=== PATIENT | female | born 1935 | race Caucasian/White ===

== ENCOUNTER 2016-11-06 17:33 | Emergency (ER) | END 2016-11-06 20:11 | disposition home or self-care (01) | DX: R19.7 Diarrhea, unspecified (principal); I10 Essential (primary) hypertension; Z79.82 Long term (current) use of aspirin ==

== ENCOUNTER 2017-06-26 13:58 | Emergency (ER) | END 2017-06-26 20:28 | disposition home or self-care (01) ==

== ENCOUNTER 2018-11-13 17:57 | Emergency (ER) | payer MEDICARE, OTHER ==
[~2018-11-13] VITALS: Ht 162.6 cm; Wt 100.0 kg
[~2018-11-13 17:57] MED LIST: ALBU18HF INHALATION; ALEN70TA5 PO; AMIO200T4 PO; ASPI-817 PO; ASPI81TA50 PO; ATEN50TA PO; BETH50TA PO; CELE200C PO; CHOL200056 PO; CLON-379 PO; DEXL60CA2 PO; DICL100G37 TOP; FLUT16SP17 NASAL; FURO-110 PO; FURO20TA3 PO; FURO40TA4 PO; HYDR25TA6 PO; HYDR28.340 TOP; ICOS1CAP PO; LABE100T7 PO; LEVO112T57 PO; LORA0.5T PO; LORA1TAB PO; MECL-77 PO; MELO15TA30 PO; MEMA5TAB PO; OLME40TA13 PO; OLOP2.5D BOTH EYES; OMEG1CAP2 PO; POTA8TAB2 PO; RSV10T PO; SOLI5TAB2 PO; TEMA15CA6 PO; TYL500 PO; ZOLP10TA5 PO
[2018-11-13 18:00] VITALS: Ht 162.6 cm; Wt 100.0 kg
--- NOTE | 2018-11-13 18:33 | ERD ---
ER Documentation Chief Complaint Chief Complaint Daughter reports pt unable to urinate for 2 weeks HPI The patient is a 82-year-old female, presenting to the ER because she has not been able to void well for the last 2 weeks. This is a chronic problem and she has been follow-up with urologist frequently. She saw her urologist about a month ago, who requested her to see a cash processor for her uterine prolapse however she has not seen one. She denies fever, chills, neck pain, chest pain, dyspnea, abdominal pain, vomiting, complains of chronic bilateral leg edema, denies orthopnea/paroxysmal nocturnal dyspnea. She does not smoke nor drink Past medical history: Dyslipidemia, hypothyroidism, history of CHF, hypertension, anxiety, history of urinary retention, uterine prolapse Past surgical history: None ROS All systems reviewed and are negative except as per history of present illness. Medications Home Meds Active Scripts Furosemide* (Lasix*) 20 Mg Tablet, 20 MG PO DAILY, #20 TAB Prov:SHELLY GUARDADO MD 11/13/18 Reported Medications Olopatadine* (Pataday*) 0.2% - 2.5 Ml Drops, 1 DROP BOTH EYES DAILY, EA 11/13/18 Cholecalciferol (Vitamin D3) (Vitamin D-3) 2,000 Unit Tablet, 2000 UNIT PO DAILY, TAB 11/13/18 Aspirin* (Aspirin* EC) 81 Mg Tablet., 81 MG PO DAILY, TAB 11/13/18 Bethanechol Chloride* (Urecholine*) 50 Mg Tablet, 50 MG PO TID, TAB 11/13/18 Icosapent Ethyl (VASCEPA) 1 Gm Capsule, 2 GM PO BID, CAP 11/13/18 Dexlansoprazole (Dexilant) 60 Mg Cap., 60 MG PO DAILY, #30 CAP 11/13/18 Memantine* (Namenda*) 5 Mg Tablet, 5 MG PO DAILY, #30 TAB 11/13/18 Rosuvastatin Calcium* (Crestor*) 10 Mg Tablet, 10 MG PO QHS, #30 TAB 11/13/18 Olmesartan Medoxomil (Benicar) 40 Mg Tablet, 40 MG PO DAILY, #30 TAB 11/13/18 Alendronate Sodium* (Fosamax*) 70 Mg Tablet, 70 MG PO QFRI, #4 TAB 11/13/18 Celecoxib* (Celebrex*) 200 Mg Capsule, 200 MG PO DAILY, CAP 11/13/18 Meloxicam* (Mobic*) 15 Mg Tablet, 15 MG PO DAILY, #30 TAB 11/13/18 Albuterol Sulfate* (Ventolin HFA*) 18 Gm Hfa.aer.ad, 2 PUFF INHALATION Q4H, #1 INHALER 11/13/18 Zolpidem Tartrate* (Zolpidem Tartrate*) 10 Mg Tablet, 10 MG PO QHS PRN for INSOMNIA, #30 TAB 11/13/18 Fluticasone Propionate* (Fluticasone Propionate* Nasal) 50 Mcg/Joy - 16 Gm Joy.susp, 1 SPRAY NASAL DAILY, #1 BOTTLE TO EACH NOSTRIL 11/13/18 Diclofenac Sodium* (Voltaren* Gel) 1% -100 Gm Gel, 2 GM TOP QID, #1 TUB 11/13/18 Furosemide* (Furosemide*) 40 Mg Tablet, 40 MG PO BID, TAB 11/13/18 Hydrocortisone* Topical (Hydrocortisone* Topical) 0.5%-28.35 Gm Cream..g., 1 APPLIC TOP BID, TUB 11/13/18 Levothyroxine Sodium* (Levothyroxine Sodium*) 112 Mcg Tablet, 112 MCG PO BEFORE BREAKFAST, #30 TAB 11/13/18 Labetalol Hcl* (Labetalol Hcl*) 100 Mg Tablet, 100 MG PO BID, TAB 11/13/18 Meclizine Hcl* (Meclizine Hcl*) 25 Mg Tablet, 25 MG PO DAILY PRN for DIZZINESS, TAB 11/13/18 Lorazepam* (Lorazepam*) 1 Mg Tablet, 1 MG PO HS PRN for ANXIETY, #30 TAB 11/13/18 Potassium Chloride* (Klor-Con*) 8 Meq Tablet.sa, 16 MEQ PO BID, TAB 11/13/18 Clonidine Hcl* (Clonidine Hcl*) 0.1 Mg Tab, 0.1 MG PO Q8, TAB 11/13/18 Amiodarone Hcl* (Amiodarone Hcl*) 200 Mg Tablet, 200 MG PO BID, #60 TAB 11/13/18 Discontinued Reported Medications Dexlansoprazole (Dexilant) 60 Mg , 60 MG PO DAILY, #30 CAP 06/26/17 [place]-3 Acid Ethyl Esters (Lovaza) 1 Gm Capsule, 1 GM PO BID, CAP 06/26/17 Solifenacin* (Vesicare*) 5 Mg Tablet, 5 MG PO DAILY, TAB 06/26/17 Memantine* (Namenda*) 5 Mg Tablet, 5 MG PO DAILY, #30 TAB 06/26/17 Rosuvastatin Calcium* (Crestor*) 10 Mg Tablet, 10 MG PO QHS, #30 TAB 06/26/17 Olmesartan Medoxomil (Benicar) 40 Mg Tablet, 40 MG PO DAILY, #30 TAB 06/26/17 Albuterol Sulfate* (Ventolin HFA*) 18 Gm Hfa.aer.ad, 2 PUFF INHALATION Q6H, #1 INHALER 06/26/17 Alendronate Sodium* (Fosamax*) 70 Mg Tablet, 70 MG PO Q7D, #4 TAB 06/26/17 Meloxicam* (Mobic*) 15 Mg Tablet, 15 MG PO DAILY, #30 TAB 06/26/17 Aspirin (Aspir-Low) 81 Mg Tablet.dr, 81 MG PO 06/26/17 Furosemide* (Furosemide*) 20 Mg Tablet, 20 MG PO DAILY, #60 TAB STOP TAKING IF YOU TAKE HYDROCHLOROTHIAZIDE 06/26/17 Hydrochlorothiazide* (Hydrochlorothiazide*) 25 Mg Tab, 25 MG PO DAILY, #30 TAB STOP TAKING IF YOU HUBER FUROSEMIDE 06/26/17 Levothyroxine Sodium* (Levothyroxine Sodium*) 112 Mcg Tablet, 112 MCG PO BEFORE BREAKFAST, #30 TAB 06/26/17 Atenolol* (Atenolol*) 50 Mg Tablet, 50 MG PO QAM, #30 TAB 06/26/17 Meclizine Hcl* (Meclizine Hcl*) 25 Mg Tablet, 25 MG PO DAILY PRN for DIZZINESS, TAB 06/26/17 Lorazepam* (Lorazepam*) 0.5 Mg Tablet, 0.5 MG PO HS PRN for ANXIETY, TAB 06/26/17 Temazepam* (Restoril*) 15 Mg Capsule, 15 MG PO HS PRN for NEEDED, CAP 06/26/17 Clonidine Hcl* (Clonidine Hcl*) 0.1 Mg Tab, 0.1 MG PO TID PRN for HTN, TAB 06/26/17 Amiodarone Hcl* (Amiodarone Hcl*) 200 Mg Tablet, 200 MG PO DAILY, #30 TAB 06/26/17 Discontinued Scripts Acetaminophen* (Tylenol*) 500 Mg Tab, 500 MG PO Q4H PRN for MILD PAIN LEVEL 1-3, #20 TAB Prov:MOO CAMARENA DO 06/26/17 Allergies Allergies: Coded Allergies: Penicillins (Verified Allergy, Unknown, 11/13/18) Uncoded Allergies: ALL CILLINS (Allergy, Unknown, 06/26/17) PMhx/Soc History of Surgery: Yes (eye surgery) Anesthesia Reaction: No Hx Neurological Disorder: No Hx Respiratory Disorders: No Hx Cardiac Disorders: Yes (htn, high cholesterol ) Hx Psychiatric Problems: No Hx Miscellaneous Medical Probl: Yes (hypothyroid) Hx Alcohol Use: No Hx Substance Use: No Hx Tobacco Use: No Physical Exam Vitals Vital Signs Date Temp Pulse Resp B/P (MAP) Pulse Ox O2 O2 Flow FiO2 Time Delivery Rate 11/13/18 66 20 156/76 96 Room Air 21:48 (102) 11/13/18 69 20 144/77 96 Room Air 20:00 (99) 11/13/18 98.6 76 20 146/83 96 18:00 (104) Physical Exam Const: No acute distress. Head: Atraumatic. Eyes: Normal Conjunctiva. ENT: Normal External Ears, Nose and Mouth. Neck: Full range of motion. No meningismus. Resp: Clear to auscultation bilaterally. Cardio: Regular rate and rhythm. Abd: Soft, non distended, normal bowel sounds, non tender. Skin: No petechiae or rashes. Back: No midline or flank tenderness. Ext: Chronic bilateral lower extremity edema, no calf tenderness Neur: Awake and alert. No focal deficit Psych: Normal Mood and Affect. Result Diagram: 11/13/18 1844 11/13/18 1844 Results 24 hrs Laboratory Tests Test 11/13/18 18:43 11/13/18 18:44 B-Type Natriuretic Peptide 594 PG/ML White Blood Count 7.1 10^3/ul Red Blood Count 4.07 10^6/ul Hemoglobin 11.3 g/dl Hematocrit 35.5 % Mean Corpuscular Volume 87.2 fl Mean Corpuscular Hemoglobin 27.8 pg Mean Corpuscular Hemoglobin Concent 31.8 g/dl Red Cell Distribution Width 15.0 % Platelet Count 212 10^3/UL Mean Platelet Volume 9.9 fl Immature Granulocytes % 0.300 % Neutrophils % 56.7 % Lymphocytes % 30.6 % Monocytes % 8.8 % Eosinophils % 2.8 % Basophils % 0.8 % Nucleated Red Blood Cells % 0.0 /100WBC Immature Granulocytes # 0.020 10^3/ul Neutrophils # 4.0 10^3/ul Lymphocytes # 2.2 10^3/ul Monocytes # 0.6 10^3/ul Eosinophils # 0.2 10^3/ul Basophils # 0.1 10^3/ul Nucleated Red Blood Cells # 0.0 10^3/ul Sodium Level 144 mmol/L Potassium Level 4.2 mmol/L Chloride Level 107 mmol/L Carbon Dioxide Level 29 mmol/L Anion Gap 8 Blood Urea Nitrogen 27 mg/dl Creatinine 0.97 mg/dl Est Glomerular Filtrat Rate mL/min mL/min Glucose Level 107 mg/dl Calcium Level 9.2 mg/dl Total Bilirubin 0.3 mg/dl Direct Bilirubin 0.00 mg/dl Indirect Bilirubin 0.3 mg/dl Aspartate Amino Transf (AST/SGOT) 29 IU/L Alanine Aminotransferase (ALT/SGPT) 18 IU/L Alkaline Phosphatase 46 IU/L Total Protein 7.3 g/dl Albumin 4.3 g/dl Globulin 3.00 g/dl Albumin/Globulin Ratio 1.43 Lipase 135 U/L Current Medications Medications Dose Sig/Nathalie Start Time Status Last (Trade) Ordered Route PRN Stop Time Admin Dose Reason Admin 650 mg ONCE ONCE 11/13/18 DC 11/13/18 Acetaminophen PO 22:00 11/13/18 21:40 (Tylenol 22:00 Tab) Procedures/[place] [address] Radiology Main Line: [phone] DIAGNOSTIC IMAGING REPORT Patient: CARLOS ROY : 1935 Age: 83 Sex: F MR #: [id number] DOS: 11/13/18 190 Ordering MD: SHELLY GUARDADO MD Location: E/R Room/Bed: PROCEDURE: XR Chest, 1 View CLINICAL INDICATION: Shortness of breath. TECHNIQUE: Frontal view of the chest. COMPARISON: 11/13/2014 (11/13/2014) FINDINGS: LUNGS: Suboptimal inspiration, causing crowding of the pulmonary markings. PLEURAL SPACE: Unremarkable. No pneumothorax. HEART: Mild cardiomegaly is noted. MEDIASTINUM: Unremarkable. BONES/JOINTS: Degenerative changes of the thoracic spine are noted. Old healed bilateral rib fractures. VASCULATURE: Mild pulmonary venous congestion and increased interstitial markings. Findings are suggestive of mild fluid overload/CHF. The thoracic aorta is tortuous and atherosclerotic. IMPRESSION: 1. Suboptimal inspiration, causing crowding of the pulmonary markings. 2. Mild cardiomegaly is noted. 3. Mild pulmonary venous congestion and increased interstitial markings. Findings are suggestive of mild fluid overload/CHF. This is new when compared to 11/13/2014. RPTAT: [facility] Chaparrita Sultana Physician Tea Room Manager Date Time Electronically viewed and signed by Chaparrita Sultana Physician Tea Room Manager on 11/13/2018 19:26 RmC/ CC: SHELLY GUARDADO MD [id number] [place] [address] Radiology Main Line: [phone] DIAGNOSTIC IMAGING REPORT Patient: CARLOS ROY : 1935 Age: 83 Sex: F MR #: [id number] DOS: 11/13/18 190 Ordering MD: SHELLY GUARDADO MD Location: E/R Room/Bed: PROCEDURE: US Lower extremity Venous. CLINICAL INDICATION: Edema TECHNIQUE: Multiple sonographic images of the bilateral lower extremity deep venous system were obtained utilizing grayscale, color-flow, compressive sonography and doppler imaging with augmentation. The images were reviewed on a PACS workstation. COMPARISON: None. FINDINGS: There is normal compressibility and flow within the bilateral common femoral, deep femoral, superficial femoral and popliteal veins. The deep veins of the calf were incompletely visualized. IMPRESSION: No sonographic evidence for deep venous thrombosis. .Zen Baum MD, MD Date Time Electronically viewed and signed by .Zen Baum MD, MD on 11/13/2018 19:38 .A/ CC: SHELLY GUARDADO MD [id number] MEDICAL MAKING DECISION: The patient is a 83-year-old female, presenting with chronic urinary retention most likely due to her uterine prolapse, chronic CHF, uterine prolapse She is stable for outpatient follow-up The differential diagnoses considered include but are not limited to renal colic, ureteral stricture, UTI, hydronephrosis Bladder Scan: performed by RN. Indication: Urinary retention Findings: Approximately <300 mL of bladder fluid Departure Diagnosis: Primary Impression: Retention of urine Additional Impressions: Uterine prolapse Chronic CHF Anemia Condition: Good Comments I discussed the findings with the patient. I advised the patient to follow-up w ith her cash processor/urologist/or assistant in about 1-2 days, sooner if needed and return if any concern. Disclaimer: Inadvertent spelling and grammatical errors are likely due to EHR/dictation software use and do not reflect on the overall quality of patient care. Also, please note that the electronic time recorded on this note does not necessarily reflect the actual time of the patient encounter. SHELLY GUARDADO MD Nov 13, 2018 18:33
[2018-11-13 21:48] VITALS: BP 156/76; PULSE 66; RESP 20
[2018-11-13] MEDS ORDERED: ACETAMINOPHEN 325 MG TAB PO ONE (22:00)
== END 2018-11-13 21:48 | disposition home or self-care (01) ==
LOC: E/R 17:57
DX: R39.198 Other difficulties with micturition (principal); I10 Essential (primary) hypertension; E03.9 Hypothyroidism, unspecified; Z79.82 Long term (current) use of aspirin
CPT/HCPCS: 36415; 71045; 80053; 83690; 83880; 85025; 93970